=== PATIENT | male | born 1970 | race African-American/Black ===

== ENCOUNTER 2024-03-12 12:45 | Emergency (ER) | payer MEDICAID, OTHER ==
[~2024-03-12] VITALS: Ht 180.3 cm; Wt 87.5 kg
[2024-03-12 14:16] LABS: Basophils # (auto) 0.1 10 ^3/uL (0-0.2); Basophils % (auto) 2.9 % (0.0-2.0); Eosinophils # (auto) 0.1 10 ^3/uL (0-0.8); Eosinophils % (auto) 2.7 % (0.0-7.0); Hematocrit 41.3 % (41.0-53.0); Hemoglobin 13.9 g/dL (13.5-17.5); Lymphocytes # (auto) 2.2 10 ^3/uL (0.4-5.4); Lymphocytes % (auto) 54.3 % (10.0-50.0); Mean Corpuscular Hemoglobin 33.6 pg (28.0-32.0); Mean Corpuscular Hgb Conc. 33.7 g/dL (32.0-36.0); Mean Corpuscular Volume 99.6 fL (80.0-100.0); Monocytes # (auto) 0.2 10 ^3/uL (0-1.3); Monocytes % (auto) 4.5 % (0.0-12.0); Neutrophils # (auto) 1.5 10 ^3/uL (1.6-8.6); Neutrophils % (auto) 35.6 % (37.0-80.0); Nucleated Red Blood Cells % 0.1 %; Platelet Count (auto) 147 10^3/uL (140-450); Red Blood Cells 4.15 10^6/uL (4.5-5.90); Red Cell Distribution Width 14.9 % (11.8-14.3); White Blood Cell 4.1 10^3/uL (4.4-10.8)
[2024-03-12 14:29] LABS: Alanine Aminotransferase 15 U/L (7-40); Alkaline Phosphatase 55 U/L (46-116); Anion Gap 9 (5-15); Calcium 9.3 mg/dL (8.7-10.4); Carbon Dioxide 18 mmol/L (20-30); Chloride 116 mmol/L (98-107); Glucose 90 mg/dL (74-106); Potassium 4.1 mmol/L (3.5-5.1); Sodium 143 mmol/L (136-145)
[2024-03-12 14:30] LABS: Albumin 4.4 g/dL (3.2-4.8); Aspartate Aminotransferase 11 U/L (13-40); BUN/Creatinine Ratio 11.8 (10.0-20.0); Bilirubin, Total 0.4 mg/dL (0.2-1.0); Blood Urea Nitrogen 13 mg/dL (9-23)
[2024-03-12] MEDS: BACLOFEN 10 MG TAB PO ONE (15:14)
[2024-03-12] MEDS: HYDROcodone-ACET 10/325MG TAB PO ONE (15:14)
[2024-03-12] MEDS ORDERED: KETOROLAC TROMETH 30 MG/ML 1ML VIAL IM ONE (17:45)
[2024-03-12] MEDS ORDERED: HYDR-4798 PO ×2 (17:54→17:56)
[2024-03-12] MEDS: KETOROLAC TROMETH 30 MG/ML 1ML VIAL IV ONE (20:33)
[2024-03-12] MEDS: MORPHINE SULFATE 4 MG/ML SYR/VIAL IV ONE (20:34)
[2024-03-12] MEDS: ONDANSETRON HCL 4 MG/2 ML VIAL IV ONE (20:34)
[2024-03-12 20:37] VITALS: TEMP 99.3
[2024-03-12 20:38] VITALS: PULSE 63; RESP 15; O2SAT 97
[2024-03-12 23:40] VITALS: BP 157/92; PULSE 65; RESP 19; O2SAT 97
== END 2024-03-12 23:41 | disposition home or self-care (01) ==
LOC: ER 12:45
DX: G40.909 Epilepsy, unspecified, not intractable, without status epilepticus (principal); M54.50 Low back pain, unspecified
CPT/HCPCS: 36415; 70450; 80053; 85025; 96374; 96375; 99285; J2270; J2405; 80307; J1885

== ENCOUNTER 2024-09-27 12:16 | Emergency (ER) | payer MEDICAID, OTHER ==
[~2024-09-27] VITALS: Ht 180.3 cm; Wt 110.0 kg
[~2024-09-27 12:16] MED LIST: HYDR-4798 PO
[2024-09-27 13:44] LABS: Basophils # (auto) 0.1 10 ^3/uL (0-0.2); Basophils % (auto) 1.8 % (0.0-2.0); Eosinophils # (auto) 0.1 10 ^3/uL (0-0.8); Hematocrit 42.3 % (41.0-53.0); Lymphocytes # (auto) 2.5 10 ^3/uL (0.4-5.4); Lymphocytes % (auto) 49.2 % (10.0-50.0); Mean Corpuscular Hemoglobin 32.7 pg (28.0-32.0); Mean Corpuscular Hgb Conc. 33.2 g/dL (32.0-36.0); Mean Corpuscular Volume 98.6 fL (80.0-100.0); Monocytes # (auto) 0.3 10 ^3/uL (0-1.3); Monocytes % (auto) 5.7 % (0.0-12.0); Neutrophils # (auto) 2.1 10 ^3/uL (1.6-8.6); Neutrophils % (auto) 41.3 % (37.0-80.0); Nucleated Red Blood Cells % 0.1 %; Platelet Count (auto) 167 10^3/uL (140-450); Red Blood Cells 4.29 10^6/uL (4.5-5.90); Red Cell Distribution Width 15.2 % (11.8-14.3); White Blood Cell 5.1 10^3/uL (4.4-10.8)
--- NOTE | 2024-09-27 13:52 | DVH ---
EXAM: XY CHEST PORTABLE HISTORY: SZ COMPARISON: None TECHNIQUE: Portable AP view of the chest was performed. FINDINGS: No pneumothorax, consolidative infiltrates, or pulmonary edema. The heart is not enlarged. IMPRESSION: No acute intrathoracic process.
--- NOTE | 2024-09-27 13:54 | DVH ---
CLINICAL INDICATION: SZ TECHNIQUE: 3 radiographic views of the right ankle were obtained. Comparison: None FINDINGS/IMPRESSION: There is acute mildly displaced oblique fracture of the distal fibula with associated soft tissue doug ma. There is slight asymmetric widening of the medial clear space and anterior ankle joint space.
--- NOTE | 2024-09-27 13:56 | DVH ---
EXAM: CT HEAD WITHOUT CONTRAST HISTORY: SZ COMPARISON: CT HEAD WITHOUT CONTRAST on DOS: 03/12/24, CT HEAD WITHOUT CONTRAST on DOS: 03/12/24 TECHNIQUE: Axial images were obtained and reformatted in coronal and sagittal planes. All CT scans at this medical facility are performed using dose modulation techniques as appropriate t o a performed exam including the following: Automated exposure control was utilized; adjustment of th e MA and/or KV according to patient size; and use of iterative reconstruction technique. CT Dose: CTDI volume is 53 mGy. Dose-length product is 1759 mGy*cm FINDINGS: Supratentorial Region: No evidence for large acute territorial ischemia. Stable moderate-sized right temporal lobe encephalomalacia with overlying craniotomy. No intracranial hemorrhage is noted. Stabl e calcification of the bilateral lentiform nuclei, more prominent Posterior Fossa: No acute abnormality. Brainstem: Unremarkable. Sellar/Suprasellar Region: Unremarkable. Ventricles, Cisterns, Sulci: Age-appropriate. Orbits: Unremarkable. Paranasal Sinuses: Unremarkable. Mastoid Air Cells: Unremarkable. Vasculature: Unremarkable. Bones/Soft Tissues: No acute abnormality. Remote right frontotemporal craniotomy. Other: None. IMPRESSION: 1. No acute intracranial process.
[2024-09-27 14:03] LABS: Alanine Aminotransferase 19 U/L (7-40); Alkaline Phosphatase 73 U/L (46-116); Anion Gap 9 (5-15); Aspartate Aminotransferase 16 U/L (13-40); BUN/Creatinine Ratio 10.2 (10.0-20.0); Bilirubin, Total 0.7 mg/dL (0.2-1.0); Blood Urea Nitrogen 13 mg/dL (9-23); Calcium 9.9 mg/dL (8.7-10.4); Carbon Dioxide 24 mmol/L (20-31); Glucose 104 mg/dL (74-106); Magnesium 2.2 mg/dL (1.6-2.6); Potassium 4.1 mmol/L (3.5-5.1); Sodium 144 mmol/L (136-145); Total Protein 7.7 g/dL (5.7-8.2)
[2024-09-27 14:05] LABS: Albumin 4.9 g/dL (3.2-4.8); Chloride 111 mmol/L (98-107); Creatine Kinase IFCC 478 U/L (46-171)
--- NOTE | 2024-09-27 14:16 | DVH ---
EXAM: CT CERVICAL WITHOUT CONTRAST INDICATION: SZ EXAM DATE: 09/27/2024 01:11 PM COMPARISON: None TECHNIQUE: Multiple axial CT images of the cervical spine were obtained using bone algorithm. Axial a nd coronal reformatting was done. Bone and soft tissue windows were reviewed. Radiation Dose Information: CT Dose: CTDI volume is 23.43 mGy. Dose-length product is 1759.32 mGy*cm FINDINGS: The cervical alignment is intact. No acute cervical spine fracture is identified. The vertebral body heights are intact. No suspicious osseous lesions are identified. Mild bony spondylosis and degenerative disc changes C4 through C6 There is no prevertebral soft tissue swelling. IMPRESSION: 1. No evidence of acute cervical spine fracture or traumatic malalignment. 2. No central spinal canal stenosis. 3. Straightening of the normal cervical lordotic curve may be secondary to patient positioning or mus hugo spasm. All CT scans at this medical facility are performed using dose modulation techniques as appropriate t o a performed exam including the following: Automated exposure control was utilized; adjustment of th e MA and/or KV according to patient size; and use of iterative reconstruction technique.
--- NOTE | 2024-09-27 15:11 | ED.PDOC ---
HPI (NEURO) HPI Comments HPI: 54 y/o M , presents to the ED for CC of s/p seizure injury yesterday. Patient states, that he had a seizure last night (09/26/24) resulting in him landing on his right foot. Patient relays, that following fall he has been experiencing right ankle pain with associated swelling and inability to bear weight onto his right leg. Patient complains of current 10/10 pain to the trauma area. Patient denies head trauma, open wounds, musculoskeletal pain, fever, nausea, or vomiting. No other symptoms or modifying factors at this time. Patient states compliance with the seizure medications. He does not remember exactly brought the seizure. This happened on his way back from the bathroom to his bed. Sister was a witnessed who was not here at this time. Patient is on Topamax and lamotrigine for seizures. VITALS: Temp: 98.3 BP:128/90 HR:100 RR:16 SPO2:99% Past medical history: SEIZURES, ARTHRITIS, OPTIC NERVE TUMOR, HTN Past surgical history: OPTIC NERVE TUMOR REMOVAL craniotomy HPI: Poor Historian. REVIEW OF SYSTEMS: CONSTITUTIONAL: Denies acute: fever, diaphoresis, chills, HEAD: Denies acute: headache, photophobia Eyes: Denies acute: Double vision, vision loss, eye pain, eye discharge. EARS: Denies acute: tinnitus, hearing loss, ear discharge, ear pain, THROAT: Denies acute: sore throat, swelling, difficulty swallowing , pain with swallowing, change in voice. NECK: Denies acute: neck pain, neck swelling, stiff neck. HEART: Denies acute : chest pain, palpitations, LUNGS: Denies acute: SOB, wheezing, cough, hemoptysis ABDOMEN: Denies acute: abdominal pain, Nausea, Vomiting, diarrhea, melena , hematemesis, hematochezia SKIN: Denies acute: rash, redness, lesions, itchiness. EXTREMITIES: Denies acute: calf pain, numbness, tingling, weakness, Denies acute: Low back pain. Neuro: Denies acute: focal neurological deficit, motor or sensory focal neurological deficit, tremors, confusion, dizziness, change in mental status, loss of bowel or bladder function, cauda equina like symptoms. : Denies acute: dysuria, hematuria, flank pain, increase in urinary frequency. PSYCH: Denies acute: hallucination, suicidal ideation, homicidal ideation. PHYSICAL EXAM: General: ---mild----acute distress, awake and alert. Head: normocephalic, atraumatic. Neck: supple, trachea is midline, no swelling. Throat: Normal phonation. Eyes:, no erythema, no purulent discharge, no proptosis, no icterus. Heart: regular rate, regular rhythm, no significant murmur appreciated. Lungs: no apparent respiratory distress, Able to speak in full sentences. No wheezing, no rhonchi, no crackles. No stridors Clear to auscultation bilaterally. Abdomen: non tender to palpation, non distended, soft, no guarding, no rebound, + bowel sounds. Neuro: Awake, Alert, oriented to name, self, situation, follows commands GCS=15. Speech is normal. Skin: no petechia, no purpura, no cyanosis, non-pale, not jaundice. Evaluation of the right lower extremity where the area of complaint is:\\ Noted right ankle swelling and tenderness to palpation over bilateral malleoli. Pedal pulses palpable. Patient neurovascularly intact in the affected extremity. Sensory and motor are present. Makes eye contact. moves all four extremities. Face: no apparent facial droop. Pedal pulses are palpable. ED COURSE: Chief Complaint: Seizure Time Seen by MD: 12:40 Primary Care Provider: unknown Reviewed Notes: Nurses Notes, Allergies Information Source: Patient Mode of Arrival: Wheelchair Severity: Moderate Headache Severity: Moderate Timing: Hours Duration: Since onset Prehospital treatment: None Onset: With light exertion Circumstances: Spontaneous Symptoms: Faintness, Syncope During: Awake History of: Seizure Disorder Modifying factors: Nothing Associated Signs and Symptoms: Headache Past Medical History Surgical History: Denies all surgeries Family History Family History: Reviewed,noncontributory to illness, No family hx of Cancer, No family hx of DM, No family hx of Heart anderson, No family hx of HTN, No family hx ofKidney anderson, No family hx of Liver anderson, No family hx of Lung anderson, No family hx of Stroke Social History Smoker: Other Alcohol: Denies ETOH Use Drugs: Denies Drug Use Lives In: Home Was a procedure done? Was a procedure done?: No Differential Diagnosis (SZ) Seizure: Other (SEIZUREDDX include not limited to CVA, cerebellar ischemia/infarct, carotid stenosis, vertebral/carotid artery dissection,, vertebrobasillary insufficiency, Intracranial mass/infection/bleed, encephalopathy, elctrolyte abnormality, thyroid disease, multiple sclerosis, hypoglycemia, drug toxicity, cardiac arrhythmia, sub-theraputic anti-convulsion medications, known seizure disorder, pseudo-seizure.) X-Ray, Labs, Meds, VS Vital Signs Date Time Temp Pulse Resp B/P (MAP) Pulse Ox O2 Delivery O2 Flow Rate FiO2 09/27/24 19:50 99.2 66 20 135/93 (107) 98 99.2 09/27/24 17:40 98.9 78 14 144/93 (110) 98 98.9 09/27/24 12:30 98.3 100 16 128/90 (103) 99 98.3 Lab Test 09/27/24 18:22 09/27/24 14:59 09/27/24 13:25 Range/Units Lamotrigine (Lamictal) Level Pending Topiramate Level Pending Troponin I High Sensitivity 6 6 </=54 ng/L White Blood Count 5.1 4.4-10.8 10^3/uL Red Blood Count 4.29 L 4.5-5.90 10^6/uL Hemoglobin 14.0 13.5-17.5 g/dL Hematocrit 42.3 41.0-53.0 % Mean Corpuscular Volume 98.6 80.0-100.0 fL Mean Corpuscular Hemoglobin 32.7 H 28.0-32.0 pg Mean Corpuscular Hemoglobin Concent 33.2 32.0-36.0 g/dL Red Cell Distribution Width 15.2 H 11.8-14.3 % Platelet Count 167 140-450 10^3/uL Mean Platelet Volume 7.8 6.9-10.8 fL Neutrophils (%) (Auto) 41.3 37.0-80.0 % Lymphocytes (%) (Auto) 49.2 10.0-50.0 % Monocytes (%) (Auto) 5.7 0.0-12.0 % Eosinophils (%) (Auto) 2.0 0.0-7.0 % Basophils (%) (Auto) 1.8 0.0-2.0 % Neutrophils # (Auto) 2.1 1.6-8.6 10 ^3/uL Lymphocytes # (Auto) 2.5 0.4-5.4 10 ^3/uL Monocytes # (Auto) 0.3 0-1.3 10 ^3/uL Eosinophils # (Auto) 0.1 0-0.8 10 ^3/uL Basophils # (Auto) 0.1 0-0.2 10 ^3/uL Nucleated Red Blood Cells 0.1 % Sodium Level 144 136-145 mmol/L Potassium Level 4.1 3.5-5.1 mmol/L Chloride Level 111 H 98-107 mmol/L Carbon Dioxide Level 24 20-31 mmol/L Anion Gap 9 5-15 Blood Urea Nitrogen 13 9-23 mg/dL Creatinine 1.28 0.700-1.30 mg/dL Glomerular Filtration Rate Calc 67 >90 mL/min BUN/Creatinine Ratio 10.2 10.0-20.0 Serum Glucose 104 74-106 mg/dL Lactic Acid Level 1.1 0.4-2.0 mmol/L Calcium Level 9.9 8.7-10.4 mg/dL Magnesium Level 2.2 1.6-2.6 mg/dL Total Bilirubin 0.7 0.2-1.0 mg/dL Aspartate Amino Transferase (AST) 16 13-40 U/L Alanine Aminotransferase (ALT) 19 7-40 U/L Alkaline Phosphatase 73 46-116 U/L Creatine Kinase 478 H 46-171 U/L Total Protein 7.7 5.7-8.2 g/dL Albumin 4.9 H 3.2-4.8 g/dL Current Medications Medications (Trade) Dose Ordered Sig/Marina Route Start Time Stop Time Status Last Admin Acetaminophen/ Hydrocodone Bitart ([place] 5/325MG Tab) 1 tab ONCE ONCE PO 09/27/24 17:45 09/27/24 17:46 DC 09/27/24 18:11 Levetiracetam 100 ml @ 400 mls/hr ONCE ONCE IV 09/27/24 18:15 09/27/24 18:29 DC 09/27/24 19:[address] [address] Ph: [phone] DIAGNOSTIC IMAGING Diagnostic Imaging Report : [id number] Signed PATIENT: DON ZAVALA RELLACCT: [id number] UNIT: [id number] : 1970 LOC: ER ROOM / BED: / AGE / SEX: 54 / M ADM STATUS: REG ER SERVICE 1310 ORDERING PHYSICIAN: CHERELLE JEWELL DO PROCEDURE(s): CXRP - CHEST PORTABLE REASON: ORDER NUMBER(s): [id number], ACCESSION NUMBER(s): [id number] EXAM: XY CHEST PORTABLE HISTORY: SZ COMPARISON: None TECHNIQUE: Portable AP view of the chest was performed. FINDINGS: No pneumothorax, consolidative infiltrates, or pulmonary edema. The heart is not enlarged. IMPRESSION: No acute intrathoracic process. ATED BY: DOUGLAS IRWIN MD DICTATED DATE/TIME: 09/27/24 135 SIGNED BY: DOUGLAS IRWIN MD SIGNED DATE/TIME: 09/27/24 135 CC: [place] [id number] Ph: [phone] DIAGNOSTIC IMAGING Diagnostic Imaging Report : [id number] Signed PATIENT: DON ZAVALA RELLACCT: [id number] UNIT: [id number] : 1970 LOC: ER ROOM / BED: / AGE / SEX: 54 / M ADM STATUS: REG ER SERVICE 1312 ORDERING PHYSICIAN: CHERELLE JEWELL DO PROCEDURE(s): CS2 - CERVICAL WITHOUT CONTRAST REASON: ORDER NUMBER(s): [id number], ACCESSION NUMBER(s): [id number] EXAM: CT CERVICAL WITHOUT CONTRAST INDICATION: SZ EXAM DATE: 09/27/2024 01:11 PM COMPARISON: None TECHNIQUE: Multiple axial CT images of the cervical spine were obtained using bone algorithm. Axial and coronal reformatting was done. Bone and soft tissue windows were reviewed. Radiation Dose Information: CT Dose: CTDI volume is 23.43 mGy. Dose-length product is 1759.32 mGy*cm FINDINGS: The cervical alignment is intact. No acute cervical spine fracture is identif ied. The vertebral body heights are intact. No suspicious osseous lesions are identified. Mild bony spondylosis and degenerative disc changes C4 through C6 There is no prevertebral soft tissue swelling. IMPRESSION: 1. No evidence of acute cervical spine fracture or traumatic malalignment. 2. No central spinal canal stenosis. 3. Straightening of the normal cervical lordotic curve may be secondary to patient positioning or muscle spasm. All CT scans at this medical facility are performed using dose modulation techniques as appropriate to a performed exam including the following: Automated exposure control was utilized; adjustment of the MA and/or KV according to patient size; and use of iterative reconstruction technique. ATED BY: GINA CARDOSO Jr., DO DICTATED DATE/TIME: 09/27/241412 SIGNED BY: GINA CARDOSO Jr., SIGNED DATE/TIME: 09/27/241412 CC: [place] [id number] Ph: [phone] DIAGNOSTIC IMAGING Diagnostic Imaging Report : [id number] Signed PATIENT: DON ZAVALA RELLACCT: [id number] UNIT: [id number] : 1970 LOC: ER ROOM / BED: / AGE / SEX: 54 / M ADM STATUS: REG ER SERVICE 1312 ORDERING PHYSICIAN: CHERELLE JEWELL DO PROCEDURE(s): HWOCT - HEAD WITHOUT CONTRAST REASON: SZ ORDER NUMBER(s): [id number], ACCESSION NUMBER(s): [id number] EXAM: CT HEAD WITHOUT CONTRAST HISTORY: SZ COMPARISON: CT HEAD WITHOUT CONTRAST on DOS: 03/12/24, CT HEAD WITHOUT CONTRAST on DOS: 03/12/24 TECHNIQUE: Axial images were obtained and reformatted in coronal and sagittal planes. All CT scans at this medical facility are performed using dose modulation techniques as appropriate to a performed exam including the following: Automated exposure control was utilized; adjustment of the MA and/or KV according to patient size; and use of iterative reconstruction technique. CT Dose: CTDI volume is 53 mGy. Dose-length product is 1759 mGy*cm FINDINGS: Supratentorial Region: No evidence for large acute territorial ischemia. Stable moderate-sized right temporal lobe encephalomalacia with overlying craniotomy. No intracranial hemorrhage is noted. Stable calcification of the bilateral lentiform nuclei, more prominent Posterior Fossa: No acute abnormality. Brainstem: Unremarkable. Sellar/Suprasellar Region: Unremarkable. Ventricles, Cisterns, Sulci: Age-appropriate. Orbits: Unremarkable. Paranasal Sinuses: Unremarkable. Mastoid Air Cells: Unremarkable. Vasculature: Unremarkable. Bones/Soft Tissues: No acute abnormality. Remote right frontotemporal craniotomy. Other: None. IMPRESSION: 1. No acute intracranial process. ATED BY: CAMILA GREENBERG MD DICTATED DATE/TIME: 09/27/241352 SIGNED BY: CAMILA GREENBERG MD SIGNED DATE/TIME: 09/27/241352 CC: [place] [id number] Ph: [phone] DIAGNOSTIC IMAGING Diagnostic Imaging Report : [id number] Signed PATIENT: DON ZAVALA RELLACCT: [id number] UNIT: [id number] : 1970 LOC: ER ROOM / BED: / AGE / SEX: 54 / M ADM STATUS: REG ER SERVICE 1312 ORDERING PHYSICIAN: CHERELLE JEWELL DO PROCEDURE(s): RANKL - R ANKLE 3 VIEW REASON: ZITA ORDER NUMBER(s): [id number], ACCESSION NUMBER(s): [id number] CLINICAL INDICATION: ZITA TECHNIQUE: 3 radiographic views of the right ankle were obtained. Comparison: None FINDINGS/IMPRESSION: There is acute mildly displaced oblique fracture of the distal fibula with associated soft tissue edema. There is slight asymmetric widening of the medial clear space and anterior ankle joint space. ATED BY: LIANE MANLEY DO DICTATED DATE/TIME: 09/27/241351 SIGNED BY: LIANE MANLEY DO SIGNED DATE/TIME: 09/27/241351 CC: [place] [id number] Ph: [phone] DIAGNOSTIC IMAGING Diagnostic Imaging Report : [id number] Signed PATIENT: DON ZAVALA RELLACCT: [id number] UNIT: [id number] : 1970 LOC: ER ROOM / BED: / AGE / SEX: 54 / M ADM STATUS: REG ER SERVICE 1508 ORDERING PHYSICIAN: CHERELLE JEWELL DO PROCEDURE(s): RTBFB - R TIB FIB XRAY REASON: fall ORDER NUMBER(s): [id number], ACCESSION NUMBER(s): [id number] CLINICAL INDICATION: fall TECHNIQUE: 4 radiographic views of the right tibia and fibula. were obtained. Comparison: None FINDINGS/IMPRESSION: There is no evidence of acute fracture or dislocation. Displaced fracture not visualized if clinical setting warrants recommend CT. The visualized joint space is well maintained. The alignment is anatomical. There is no radiopaque foreign body. ATED BY: GINA CARDOSO Jr., DO DICTATED DATE/TIME: 09/27/24 1549 SIGNED BY: GINA CARDOSO Jr., SIGNED DATE/TIME: 09/27/24 1549 CC: Time of 1ST Reevaluation: 13:20 Reevaluation 1ST: Improved Time of 2ND Reevaluation: 21:21 (The case was discussed with the admitting team (HPI, physical exam, labs and diagnostic tests that were available at the time of disposition, ED course, treatment plan) on the phone. They agreed to admit the patient to their service and assume care of this patient from this point forward. --- mitzy. ) Patient Education/Counseling: Diagnosis, Treatment Family Education/Counseling: No Family Present Comments Patient presented with the above HPI.---seizure and ankle pain injury---workup was initiated. patient was found with the above mentioned diagnosis. the following medications were ordered: please refer to order lists of meds and tests obtained by myself Dr. Jewell. Patient ED course and VS have been stabilized. Patient has been reassessed in the ED and remained in a stable condition. Pertinent incidental findings were discussed with the patient and/or family. Patient/family voices understanding and is agreeable with plan. Patient has been observed in the ED adequate length of time to insure improvement/stability. Escalation of care considered: Consideration of escalation to observation or admission Splint was applied. Patient was ADMITTED to the medicine team for further evaluation and treatment of their presentation. Later I was notified that the patient eloped. All the reports of any imaging studies that were ordered by myself were reviewed by myself. Departure 1 Departure Time of Disposition: 15:10 Impression: Primary Impression: Seizure Additional Impression: Closed right ankle fracture Disposition: 09 ADMITTED INPATIENT Admit to: [facility] Condition: Guarded Additional Instructions: [place] [address] Ph: [phone] DIAGNOSTIC IMAGING Diagnostic Imaging Report : [id number] Signed PATIENT: DON ZAVALA TANJA ACCT: [id number] UNIT: [id number] : 1970 LOC: ER ROOM / BED: / AGE / SEX: 54 / M ADM STATUS: REG ER SERVICE 1310 ORDERING PHYSICIAN: CHERELLE JEWELL DO PROCEDURE(s): CXRP - CHEST PORTABLE REASON: ZITA ORDER NUMBER(s): [id number], ACCESSION NUMBER(s): [id number] EXAM: XY CHEST PORTABLE HISTORY: SZ COMPARISON: None TECHNIQUE: Portable AP view of the chest was performed. FINDINGS: No pneumothorax, consolidative infiltrates, or pulmonary edema. The heart is not enlarged. IMPRESSION: No acute intrathoracic process. ATED BY: DOUGLAS IRWIN MD DICTATED DATE/TIME: 09/27/24 1350 SIGNED BY: DOUGLAS IRWIN MD SIGNED DATE/TIME: 09/27/24 135 CC: [place] [phone] Ph: [phone] DIAGNOSTIC IMAGING Diagnostic Imaging Report : [id number] Signed PATIENT: DON ZAVALA TANJA ACCT: [id number] UNIT: [id number] : 1970 LOC: ER ROOM / BED: / AGE / SEX: 54 / M ADM STATUS: REG ER SERVICE 1312 ORDERING PHYSICIAN: CHERELLE JEWELL DO PROCEDURE(s): CS2 - CERVICAL WITHOUT CONTRAST REASON: ZITA ORDER NUMBER(s): [id number], ACCESSION NUMBER(s): [id number] EXAM: CT CERVICAL WITHOUT CONTRAST INDICATION: SZ EXAM DATE: 09/27/2024 01:11 PM COMPARISON: None TECHNIQUE: Multiple axial CT images of the cervical spine were obtained using bone algorithm. Axial and coronal reformatting was done. Bone and soft tissue wi ndows were reviewed. Radiation Dose Information: CT Dose: CTDI volume is 23.43 mGy. Dose-length product is 1759.32 mGy*cm FINDINGS: The cervical alignment is intact. No acute cervical spine fracture is identified. The vertebral body heights are intact. No suspicious osseous lesions are identified. Mild bony spondylosis and degenerative disc changes C4 through C6 There is no prevertebral soft tissue swelling. IMPRESSION: 1. No evidence of acute cervical spine fracture or traumatic malalignment. 2. No central spinal canal stenosis. 3. Straightening of the normal cervical lordotic curve may be secondary to patient positioning or muscle spasm. All CT scans at this medical facility are performed using dose modulation techniques as appropriate to a performed exam including the following: Automated exposure control was utilized; adjustment of the MA and/or KV according to patie nt size; and use of iterative reconstruction technique. ATED BY: GINA CARDOSO Jr., DO DICTATED DATE/TIME: 09/27/241412 SIGNED BY: GINA CARDOSO Jr., SIGNED DATE/TIME: 09/27/241412 CC: [place] [address] Ph: [phone] DIAGNOSTIC IMAGING Diagnostic Imaging Report : [id number] Signed PATIENT: DON ZAVALA TANJA ACCT: [id number] UNIT: [id number] : 1970 LOC: ER ROOM / BED: / AGE / SEX: 54 / M ADM STATUS: REG ER SERVICE 1312 ORDERING PHYSICIAN: CHERELLE JEWELL DO PROCEDURE(s): HWOCT - HEAD WITHOUT CONTRAST REASON: ORDER NUMBER(s): [id number], ACCESSION NUMBER(s): [id number] EXAM: CT HEAD WITHOUT CONTRAST HISTORY: SZ COMPARISON: CT HEAD WITHOUT CONTRAST on DOS: 03/12/24, CT HEAD WITHOUT CONTRAST on DOS: 03/12/24 TECHNIQUE: Axial images were obtained and reformatted in coronal and sagittal planes. All CT scans at this medical facility are performed using dose modulation techniques as appropriate to a performed exam including the following: Automated exposure control was utilized; adjustment of the MA and/or KV according to patient size; and use of iterative reconstruction technique. CT Dose: CTDI volume is 53 mGy. Dose-length product is 1759 mGy*cm FINDINGS: Supratentorial Region: No evidence for large acute territorial ischemia. Stable moderate-sized right temporal lobe encephalomalacia with overlying craniotomy. No intracranial hemorrhage is noted. Stable calcification of the bilateral lentiform nuclei, more prominent Posterior Fossa: No acute abnormality. Brainstem: Unremarkable. Sellar/Suprasellar Region: Unremarkable. Ventricles, Cisterns, Sulci: Age-appropriate. Orbits: Unremarkable. Paranasal Sinuses: Unremarkable. Mastoid Air Cells: Unremarkable. Vasculature: Unremarkable. Bones/Soft Tissues: No acute abnormality. Remote right frontotemporal craniotomy. Other: None. IMPRESSION: 1. No acute intracranial process. ATED BY: CAMILA GREENBERG MD DICTATED DATE/TIME: 09/27/24 1353 SIGNED BY: CAMILA GREENBERG MD SIGNED DATE/TIME: 09/27/24 1353 CC: [place] [id number] Ph: [phone] DIAGNOSTIC IMAGING Diagnostic Imaging Report : [id number] Signed PATIENT: DON ZAVALA DA TANJA ACCT: [id number] UNIT: [id number] : 1970 LOC: ER ROOM / BED: / AGE / SEX: 54 / M ADM STATUS: REG ER SERVICE 1312 ORDERING PHYSICIAN: CHERELLE JEWELL DO PROCEDURE(s): RANKL - R ANKLE 3 VIEW REASON: ZITA ORDER NUMBER(s): [id number], ACCESSION NUMBER(s): [id number] CLINICAL INDICATION: TECHNIQUE: 3 radiographic views of the right ankle were obtained. Comparison: None FINDINGS/IMPRESSION: There is acute mildly displaced oblique fracture of the distal fibula with associated soft tissue edema. There is slight asymmetric widening of the medial clear space and anterior ankle joint space. ATED BY: LIANE MANLEY DO DICTATED DATE/TIME: 09/27/24 1352 SIGNED BY: LIANE MANLEY DO SIGNED DATE/TIME: 09/27/24 1352 CC: [place] [id number] Ph: [phone] DIAGNOSTIC IMAGING Diagnostic Imaging Report : [id number] Signed PATIENT: DON ZAVALAL ACCT: [id number] UNIT: [id number] : 1970 LOC: ER ROOM / BED: / AGE / SEX: 54 / M ADM STATUS: REG ER SERVICE 1508 ORDERING PHYSICIAN: CHERELLE JEWELL DO PROCEDURE(s): RTBFB - R TIB FIB XRAY REASON: fall ORDER NUMBER(s): [id number], ACCESSION NUMBER(s): [id number] CLINICAL INDICATION: fall TECHNIQUE: 4 radiographic views of the right tibia and fibula. were obtained. Comparison: None FINDINGS/IMPRESSION: There is no evidence of acute fracture or dislocation. Displaced fracture not visualized if clinical setting warrants recommend CT. The visualized joint space is well maintained. The alignment is anatomical. There is no radiopaque foreign body. ATED BY: GINA CARDOSO Jr., DO DICTATED DATE/TIME: 09/27/24 1549 SIGNED BY: GINA CARDOSO Jr., DO SIGNED DATE/TIME: 09/27/24 1549 CC: Discharged With: Self Critical Care Note Critical Care Time?: No I personally scribed for CHERELLE JEWELL DO ([email or web address]) on 09/27/24 at 16:28. Elec tronically submitted by Deisi Garduno ([email or web address]). I personally scribed for CHERELLE JEWELL DO ([email or web address]) on 09/27/24 at 20:34. Electronically submitted by Deisi Garduno ([email or web address]). I personally scribed for CHERELLE JEWELL DO ([email or web address]) on 09/27/24 at 20:35. Electronically submitted by Deisi Garduno ([email or web address]). I personally scribed for CHERELLE JEWELL DO ([email or web address]) on 09/27/24 at 20:35. Electronically submitted by Deisi Garduno ([email or web address]). I personally scribed for CHERELLE JEWELL DO ([email or web address]) on 09/27/24 at 20:36. Electronically submitted by Deisi Garduno ([email or web address]). I personally scribed for CHERELLE JEWELL DO ([email or web address]) on 09/27/24 at 20:39. Electronically submitted by Deisi Garduno ([email or web address]). CHERELLE JEWELL DO Sep 27, 2024 15:11
--- NOTE | 2024-09-27 15:52 | DVH ---
CLINICAL INDICATION: fall TECHNIQUE: 4 radiographic views of the right tibia and fibula. were obtained. Comparison: None FINDINGS/IMPRESSION: There is no evidence of acute fracture or dislocation. Displaced fracture not visualized if clinical setting warrants recommend CT. The visualized joint space is well maintained. The alignment is anatomical. There is no radiopaque foreign body.
[2024-09-27] MEDS: HYDROcodone-ACET 5/325MG TAB PO ONE (18:11)
[2024-09-27] MEDS: levETIRAcetam 500 mg/100ml 100 ML IV ONE (19:11)
[2024-09-27 19:50] VITALS: BP 135/93; PULSE 66; RESP 20; TEMP 99.2; O2SAT 98
[2024-10-03 15:07] LABS: Lamotrigine (Lamictal) 6.8 ug/mL (2.0-20.0)
== END 2024-09-27 21:51 | disposition left against medical advice (07) ==
LOC: ER 12:16
DX: S82.831A Other fracture of upper and lower end of right fibula, initial encounter for closed fracture (principal); R56.9 Unspecified convulsions; I10 Essential (primary) hypertension; F17.200 Nicotine dependence, unspecified, uncomplicated; M19.90 Unspecified osteoarthritis, unspecified site; Z98.890 Other specified postprocedural states; W18.39XA Other fall on same level, initial encounter; Y93.89 Activity, other specified; Y92.89 Other specified places as the place of occurrence of the external cause; Y99.8 Other external cause status
CPT/HCPCS: 29515; 36415; 70450; 71045; 72125; 73590; 73610; 80053; 80201; 82542; 82550; 83605; 83735; 84484; 85025; 96374; 99285; J1953